=== PATIENT | female | born 2005 ===

== ENCOUNTER 2024-11-16 18:17 | Emergency (ER) | payer MEDICAID, SELFPAY ==
--- NOTE | 2024-11-16 | ECG_ITS ---
Test Reason : CHEST PAIN/SOB Blood Pressure : */* mmHG Vent. Rate : 96 BPM Atrial Rate : 96 BPM P-R Int : 128 ms QRS Dur : 76 ms QT Int : 350 ms P-R-T Axes : 50 45 51 degrees QTcB Int : 442 ms Normal sinus rhythm Normal ECG No previous ECGs available Referred By: Generic ED Physician Electronically Signed By: DORENE NOBLE
--- NOTE | ~2024-11-16 | XR_ITS ---
CLINICAL HISTORY: chest pain 2 view chest x-ray Comparison: None Findings: Heart size is normal. No consolidation, pleural effusion or pneumothorax. No acute fracture. IMPRESSION: 1. No acute findings. This document has been electronically signed by: Lacey Washington MD on 11/16/2024 19:20:13
[2024-11-16 18:39] VITALS: BP 116/73; PULSE 85; RESP 16; TEMP 37.7; O2SAT 98; BMI 28.7
--- NOTE | 2024-11-16 18:43 | ED_ITS ---
HPI - General Adult General Chief complaint: Chest Pain Stated complaint: chest pain Time Seen by Provider: 11/16/24 19:45 Source: patient Limitations: no limitations History of Present Illness ED Provider: Annamarie Nielsen PA-C HPI narrative: 19-year-old female presents with chest pain. Patient states she was at work, when she developed central chest discomfort radiating under her breast. Her symptoms have since resolved. Patient states she has had cough and cold symptoms for 1 week, and that she does perform heavy lifting at work. Denies postprandial symptoms with nausea vomiting. Denies shortness of breath, diaphoresis, fever. Related Data Allergies Allergy/AdvReac Type Severity Reaction Status Date / Time No Known Allergies Allergy Unverified 11/16/24 18:45 [No Known Allergies*] Review of Systems 2 Review of Systems: Yes all other systems are reviewed and are negative Constitutional: Constitutional: Denies fatigue and Denies fever(s) Endocrine: Endocrine: Denies fatigue PMFSH Past Medical History Attestation statement: The following information was validated with the patient. Social History Social History Smoked in Last 30 Days: Yes Use of substances other than those prescribed or required for medical reasons: No Advance Directives: No Advance Directives Information Provided: No Patient : No Physical Exam ED Vital Signs: Vital Signs - 24 hr 11/16/24 18:39 11/16/24 23:10 Temperature 99.8 F 98.2 F Pulse Rate 85 94 Respiratory Rate 16 19 Blood Pressure 116/73 99/58 L Pulse Oximetry 98 100 Oxygen Delivery Method Room Air Room Air BMI result Body Mass Index 28.7 Const Other: Alert Orientation/consciousness: patient oriented x3 Resp Effort & Inspection: normal respiratory effort Cardio Other: Normal peripheral perfusion Skin Other: Warm dry no rash Neuro General: patient oriented x3, gait normal, no focal motor deficits and CN's II- XI intact bilaterally Psych Other: Cooperative Course Course Course Narrative: This is a Rapid Medical Examination (RME) performed by Iman Fitzgerald PA-C in triage. Full HPI, ROS, assessment and treatment plan per primary provider in the Main ED. 11/16/241853 LAUREN Mckeon Hx: 19 yo female here for eval of sharp chest pain radiating under her right breast. admits to SOB w/ exertion and sitting. no recent travel/ long car rides. reports recent URI x1.5 weeks. PE/vitals:well appearing Plan: labs, ekg, cxr viral swabs Medical Decision Making Medical Decision Making [facility] Narrative: 19-year-old female presents with chest pain. Patient states she was at work, when she developed central chest discomfort radiating under her breast. Her symptoms have since resolved. Patient states she has had cough and cold symptoms for 1 week, and that she does perform heavy lifting at work. Denies postprandial symptoms with nausea vomiting. Denies shortness of breath, diaphoresis, fever. No chronic issues History: Per patient I have considered the following differential diagnoses: ACS, viral syndrome, pneumonia, costochondritis, chest wall strain, PE Plan: ACS was considered, screening labs including 2 cardiac enzymes EKG and chest x-ray were obtained, to note her heart score is 0. Also considered PE, however she is PERC negative. Her discomfort may be related to costochondritis in the setting that she has had recent cough and cold symptoms. She does perform heavy lifting at work, there may be an element of chest wall strain. I have independently reviewed the following tests: Labs: No leukocytosis, not anemic, no electrolyte abnormality, troponin x2 negative viral panel negative EKG: Normal sinus rhythm, rate of 96, no ischemic changes no ectopy Chest x-ray:Findings: Heart size is normal. No consolidation, pleural effusion or pneumothorax. No acute fracture. IMPRESSION: 1. No acute findings. Lab Data 11/16/24 19:05 11/16/24 19:05 Labs: Lab Results 11/16/24 11/16/24 Range/Units 19:05 22:34 WBC 7.7 (4.8-10.8) X10*3/uL RBC 4.85 (4.20-5.50) X10*6/uL Hgb 13.0 (12.0-16.0) g/dl Hct 38.7 (37.0-47.0) % MCV 79.8 L (80.0-98.0) fL MCH 26.8 L (27.0-33.0) pg MCHC 33.6 (31.0-35.0) g/dl RDW 12.9 (11.0-16.0) % Plt Count 286 (160-400) X10*3/uL MPV 9.6 (9.4-12.3) fL Immature Gran % (Auto) 0.3 (0.0-0.4) % Neut % (Auto) 59.2 (45-73) % Lymph % (Auto) 33.8 (20-40) % Whitfield % (Auto) 4.9 (2-11) % Eos % (Auto) 1.4 (0-4) % Baso % (Auto) 0.4 (0-2) % Lymph # (Auto) 2.6 (1.2-4.9) X10*3/uL Whitfield # (Auto) 0.4 (0.1-1.2) X10*3/uL Eos # (Auto) 0.1 (0.0-0.4) X10*3/uL Baso # (Auto) 0.0 (0.0-0.2) X10*3/uL Abs Immat Gran (auto) 0.02 (0.00-0.03) X10*3/uL Absolute Neuts (auto) 4.6 (2.0-8.3) x10*3/uL Absolute Nucleated RBC 0.000 (0.0-0.012) X10*3/uL Nucleated RBC % (auto) 0.0 (0.0-0.2) /100WBC Sodium 142 (135-145) mmol/L Potassium 3.8 (3.3-5.1) mmol/L Chloride 107 (96-108) mmol/L Carbon Dioxide 28 (22-29) mmol/L Anion Gap 11 L (12-20) BUN 6 L (9-16) mg/dL Creatinine 0.79 (0.5-1.4) mg/dL Estim Creat Clear Calc 96.6 Estimated GFR > 60 Random Glucose 85 (60-115) mg/dL Calcium 9.4 (8.4-10.2) mg/dL Magnesium 2.1 (1.6-2.6) mg/dL Total Bilirubin 0.5 (0.0-1.0) mg/dL AST 26 (5-31) U/L ALT 21 (0-31) U/L Alkaline Phosphatase 88 (39-117) U/L Troponin I High Sens < 2.7 < 2.7 (<3.5-17.0) ng/L Total Protein 7.1 (6.5-8.0) g/dL Albumin 4.1 (3.5-5.0) g/dL Influenza Type A (PCR) NEGATIVE (Negative) Influenza Type B (PCR) NEGATIVE (Negative) RSV RNA Qual (PCR) NEGATIVE (Negative) SARS-CoV-2 RNA (RT-PCR) NEGATIVE (Negative) Discharge Plan Discharge Clinical Impression: Chest wall pain Patient Disposition: Home, Self-Care Instructions: Chest Wall Pain (ED) Additional Instructions: All of your screening labs including 2 cardiac enzymes were normal, a viral panel was obtained it was negative. You were tested for influenza RSV and COVID. There were no concerning changes on the EKG in the chest x-ray is clear. You can use [id number] ibuprofen and Tylenol for your chest wall pain. Follow up with your primary care provider as needed. Stand Alone Forms: Work/School Release Print Language: Congolese
[2024-11-16 19:10] LABS: MANUAL DIFF FLAG NO
[2024-11-16 19:14] LABS: Basophils Percent Auto 0.4 % (0-2); Eosinophils Absolute Auto 0.1 X10*3/uL (0.0-0.4); Eosinophils Percent Auto 1.4 % (0-4); Hematocrit 38.7 % (37.0-47.0); Imm Gran Abs Auto 0.02 X10*3/uL (0.00-0.03); Imm Gran Pct Auto 0.3 % (0.0-0.4); Lymphocytes Absolute Auto 2.6 X10*3/uL (1.2-4.9); Lymphocytes Percent Auto 33.8 % (20-40); Mean Corpuscular HGB Conc 33.6 g/dl (31.0-35.0); Mean Corpuscular Hemoglobin 26.8 pg (27.0-33.0); Mean Corpuscular Volume 79.8 fL (80.0-98.0); Mean Platelet Volume 9.6 fL (9.4-12.3); Monocytes Absolute Auto 0.4 X10*3/uL (0.1-1.2); Monocytes Percent Auto 4.9 % (2-11); Neutrophils Absolute Auto 4.6 x10*3/uL (2.0-8.3); Neutrophils Percent Auto 59.2 % (45-73); Platelet Count 286 X10*3/uL (160-400); Red Blood Count 4.85 X10*6/uL (4.20-5.50); Red Cell Distribution Width 12.9 % (11.0-16.0); White Blood Count 7.7 X10*3/uL (4.8-10.8)
[2024-11-16 19:25] LABS: Alanine Aminotransferase 21 U/L (0-31); Albumin Level 4.1 g/dL (3.5-5.0); Alkaline Phosphatase 88 U/L (39-117); Anion Gap 11 (12-20); Aspartate Amino Transferase 26 U/L (5-31); Bilirubin Total 0.5 mg/dL (0.0-1.0); Blood Urea Nitrogen 6 mg/dL (9-16); Calcium 9.4 mg/dL (8.4-10.2); Carbon Dioxide 28 mmol/L (22-29); Chloride 107 mmol/L (96-108); Creatinine Clr Calc Pharmacy 96.6; Estimated Glomerular Filt Rate > 60; Glucose Random 85 mg/dL (60-115); Magnesium 2.1 mg/dL (1.6-2.6); Potassium 3.8 mmol/L (3.3-5.1); Sodium 142 mmol/L (135-145); Total Protein 7.1 g/dL (6.5-8.0)
[2024-11-16 19:40] LABS: Troponin-I High Sensitivity < 2.7 ng/L (<3.5-17.0)
[2024-11-16 19:48] LABS: Influenza A PCR NEGATIVE (Negative); Influenza B PCR NEGATIVE (Negative); Resp Syncy Virus RNA Qual PCR NEGATIVE (Negative); SARS COV2 PCR INHOUSE NEGATIVE (Negative)
[2024-11-16 23:01] LABS: Troponin-I High Sensitivity < 2.7 ng/L (<3.5-17.0)
[2024-11-16 23:10] VITALS: BP 99/58; PULSE 94; RESP 19; TEMP 36.8; O2SAT 100
[2024-11-17 01:19] VITALS: BP 90/65; PULSE 104; RESP 16; TEMP 36.9; O2SAT 100
[2024-11-17 01:20] VITALS: BP 90/65; PULSE 104; RESP 16; TEMP 36.9; O2SAT 100
== END 2024-11-17 01:23 | disposition home or self-care (01) ==
PROVIDERS: Physician Assistant Medical; Emergency Provider Emergency Medicine; PCP Pediatrics
DX: R07.89 Other chest pain (principal); R05.9 Cough, unspecified; Z03.818 Encounter for observation for suspected exposure to other biological agents ruled out
CPT/HCPCS: 0241U; 36415; 71046; 80053; 83735; 84484; 85025; 93005; 99283; 99285

== ENCOUNTER → 2024-11-16 18:25 | Outpatient (BNV) | payer OTHER, SELFPAY | PROVIDERS: Emergency Provider Emergency Medicine; PCP Pediatrics; Visit Provider Internal Medicine | DX: R07.9 Chest pain, unspecified (principal); R06.02 Shortness of breath | CPT/HCPCS: 93010 ==

== ENCOUNTER → 2024-11-16 18:42 | Outpatient (BNV) | payer OTHER, SELFPAY | PROVIDERS: PCP Pediatrics; Visit Provider Specialist | DX: R07.9 Chest pain, unspecified (principal) | CPT/HCPCS: 71046 ==